=== PATIENT | male | born 1985 | race Caucasian/White ===

== ENCOUNTER 2016-04-05 05:06 | Emergency (ER) | payer BC ==
[2016-04-05] MEDS ORDERED: NORMAL SALINE 1000 ML 1,000 ML IV ONE (06:35)
[2016-04-05] MEDS ORDERED: ONDANSETRON HCL INJ/PF 4 MG/2 ML SDV IV ONE (06:35)
[2016-04-05] MEDS ORDERED: KETOROLAC TROMETHAMINE INJ/PF 30 MG/1 ML SDV IV ONE (06:35)
[2016-04-05] MEDS ORDERED: METHYLPREDNISOLONE INJ 125 MG/2 ML SDV IV ONE (06:36)
--- NOTE | 2016-04-05 06:40 | ER Document Report ---
ED General - General Mode of Arrival: Ambulatory Information source: Patient TRAVEL OUTSIDE OF THE [place] IN LAST 30 DAYS: No - HPI Patient complains to provider of: Headache Onset: Yesterday Onset/Duration: Gradual, Persistent Associated symptoms: Body/muscle aches, Fever, Headache, Sore throat. denies: Nonproductive cough <LIZANDRO YUAN - Last Filed: 04/05/16 06:35> <CHECO CLAY - Last Filed: 04/05/16 09:44> - General Chief Complaint: Headache Stated Complaint: Headache Notes: Patient is a 30-year-old male presenting to the emergency department concerned of fever, body aches, headache, and throat pain onset last night. Patient states that the pressure in his head is "unreal." He also states that he feels hot and cold at the same time. Patient denies any cough or other symptoms. Patient's states that they both just finished a round of Amoxicillin and Flonase for "the crud" that they had last week. (LIZANDRO YUAN) - Related Data Allergies/Adverse Reactions: No Known Allergies Allergy (Verified 04/05/16 05:11) Past Medical History - General Information source: Patient - Social History Smoking Status: Never Smoker Chew tobacco use (# tins/day): No Frequency of alcohol use: Occasional Drug Abuse: None Occupation: [employer] Lives with: Spouse/Significant other Family History: Reviewed & Not Pertinent Patient has suicidal ideation: No Patient has homicidal ideation: No Past Surgical History: Reports: Hx Orthopedic Surgery - childhood rt femur pin/ screw - Immunizations Hx Diphtheria, Pertussis, Tetanus Vaccination: Yes <LIZANDRO YUAN - Last Filed: 04/05/16 06:35> Review of Systems - Review of Systems Constitutional: See HPI, Chills, Fever EENT: See HPI, Throat pain Cardiovascular: No symptoms reported Respiratory: No symptoms reported. denies: Cough Gastrointestinal: No symptoms reported Genitourinary: No symptoms reported Male Genitourinary: No symptoms reported Musculoskeletal: See HPI, Other - Body Aches Skin: No symptoms reported Hematologic/Lymphatic: No symptoms reported Neurological/Psychological: See HPI, Headaches -: Yes All other systems reviewed and negative <LIZANDRO YUAN - Last Filed: 04/05/16 06:35> Physical Exam - Vital signs Interpretation: Normal - General General appearance: Alert - HEENT Head: Normocephalic, Atraumatic Eyes: Normal Pupils: PERRL Pharynx: Erythema, Other - Voice hoarse Neck: Supple - Respiratory Respiratory status: No respiratory distress Chest status: Nontender Breath sounds: Normal Chest palpation: Normal - Cardiovascular Rhythm: Regular Heart sounds: Normal auscultation Murmur: No - Abdominal Inspection: Normal Distension: No distension Bowel sounds: Normal Tenderness: Nontender Organomegaly: No organomegaly - Back Back: Normal, Nontender - Extremities General upper extremity: Normal inspection, Nontender, Normal color, Normal ROM , Normal temperature General lower extremity: Normal inspection, Nontender, Normal color, Normal temperature - Neurological Neuro grossly intact: Yes Cognition: Normal Orientation: AAOx4 [place] Coma Scale Eye Opening: Spontaneous [place] Coma Scale Verbal: Oriented [place] Coma Scale Motor: Obeys Commands [place] Coma Scale Total: 15 Speech: Normal - Psychological Associated symptoms: Normal affect, Normal mood - Skin Skin Temperature: Warm Skin Moisture: Dry Skin Color: Other - Flushed <LIZANDRO YUAN - Last Filed: 04/05/16 06:35> Course - Laboratory Result Diagrams: 04/05/16 07:12 04/05/16 07:12 <CHECO CLAY - Last Filed: 04/05/16 09:44> - Vital Signs Vital signs: Temp Pulse Resp BP Pulse Ox 99.4 F 97 18 126/62 H 98 04/05/16 05:12 04/05/16 05:12 04/05/16 05:12 04/05/16 05:12 04/05/16 05:12 (LIZANDRO YUAN) (CHECO CLAY) - Laboratory Laboratory results interpreted by me: 04/05/16 04/05/16 07:12 07:12 WBC 15.1 H Seg Neuts % (Manual) 85 H Lymphocytes % (Manual) 6 L Abs Neuts (Manual) 12.8 H ALT 88 H (CHECO CLAY) Discharge <LIZANDRO YUAN - Last Filed: 04/05/16 06:35> <CHECO CLAY - Last Filed: 04/05/16 09:44> - Discharge Clinical Impression: Viral syndrome Condition: Stable Disposition: HOME, SELF-CARE Additional Instructions: Viral Syndrome: The physician has diagnosed a viral infection. Viruses not only cause "colds," but can cause many different symptoms including generalized aching, fever, headache, cough, diarrhea, nausea, vomiting, and fatigue. The treatment, for the most part, is simply relief of symptoms. This means that antibiotics are usually not given. Rest, fluids, pain medications and, occasionally, medication for the specific symptoms that are most bothersome will be prescribed. Use good handwashing to avoid passing the virus to others. Shared toys should be cleaned with disinfectant. Clean the toilets, sinks, and counter surfaces in bathrooms. Launder clothing in hot water. Contact the physician if you develop any new or unusual symptoms such as severe headache, stiff neck, high fever, chest pain, productive cough, or shortness of breath. You should be rechecked if you don't see marked improvement within seven to 10 days. TAKE TYLENOL AND MOTRIN OR ALEVE FOR ACHES AND PAINS, AND FEVER. DRINK PLENTY OF FLUIDS. REST. FOLLOW UP WITH A LOCAL MEDICAL DOCTOR IF NOT IMPROVING. RETURN TO THE EMERGENCY ROOM IF ANY NEW OR WORSENING SYMPTOMS. Forms: Return to Work Scribe Attestation: 04/05/16 09:44 I personally performed the services described in the documentation, reviewed and edited the documentation which was dictated to the scribe in my presence, and it accurately records my words and actions. (CHECO CLAY) Scribe Documentation - Scribe Written by Viky:: Lizandro Yuan 04/05/2016 06:36 acting as scribe for :: Rob <LIZANDRO YUAN - Last Filed: 04/05/16 06:35>
[2016-04-05 07:46] LABS: APPEARANCE,URINE CLEAR; BILIRUBIN,URINE NEGATIVE (NEGATIVE); GLUCOSE, URINE NEGATIVE (NEGATIVE); KETONES,URINE NEGATIVE (NEGATIVE); LEUKOCYTE ESTERASE,URINE NEGATIVE (NEGATIVE); NITRITE,URINE NEGATIVE (NEGATIVE); PROTEIN,URINE NEGATIVE (NEGATIVE); URINE SPECIFIC GRAVITY 1.016; UROBILINOGEN,URINE NEGATIVE mg/dL (<2.0)
[2016-04-05 07:51] LABS: HEMATOCRIT 41.5 % (37.9-51.0); HEMOGLOBIN 14.4 g/dL (13.5-17.0); HGB HCT DIFFERENCE 1.7; MEAN CORPUSCULAR HEMOGLOBIN 29.9 pg (27.0-33.4); MEAN CORPUSCULAR HGB CONC 34.6 g/dL (32.0-36.0); MEAN CORPUSCULAR VOLUME 87 fl (80-97); RED BLOOD COUNT 4.79 10^6/uL (4.35-5.55); RED CELL DISTRIBUTION WIDTH 13.3 % (11.5-14.0); WHITE BLOOD COUNT 15.1 10^3/uL (4.0-10.5)
[2016-04-05 07:57] LABS: ALANINE AMINOTRANSFERASE 88 U/L (21-72); ALBUMIN 4.5 g/dL (3.5-5.0); ALKALINE PHOSPHATASE 69 U/L (38-126); ANION GAP 14 (5-19); ASPARTATE AMINO TRANSFERASE 53 U/L (17-59); BILIRUBIN,TOTAL 0.8 mg/dL (0.2-1.3); BLOOD UREA NITROGEN 16 mg/dL (7-20); CARBON DIOXIDE 27 mmol/L (22-30); CHLORIDE 99 mmol/L (98-107); CREATININE RESULT 1.05 mg/dL (0.52-1.25); GLUCOSE 102 mg/dL (75-110); POTASSIUM 4.6 mmol/L (3.6-5.0); SODIUM 140.2 mmol/L (137-145); TOTAL PROTEIN 7.7 g/dL (6.3-8.2)
[2016-04-05 08:14] LABS: BASOPHILS % (MANUAL) 0 % (0-2); EOSINOPHILS % (MANUAL) 0 % (0-6); LYMPHOCYTES % (MANUAL) 6 % (13-45); TOTAL CELLS COUNTED 100
[2016-04-05 08:15] LABS: ANISOCYTOSIS SLIGHT
[2016-04-05] MEDS ORDERED: DEXTROSE 5%-NORMAL SALINE 1,000 ML IV ONE (08:30)
[2016-04-05 09:59] VITALS: BP 132/78
== END 2016-04-05 09:59 | disposition home or self-care (01) ==
LOC: ER 05:06
DX: B34.9 Viral infection, unspecified (principal); R51 Headache; M79.1 Myalgia; J02.9 Acute pharyngitis, unspecified; R50.9 Fever, unspecified; R49.0 Dysphonia
CPT/HCPCS: 99284; 96361; 96375; 96365; 36415; 85025; 80053; 81001; J2930; J1885; J2405; J7030